=== PATIENT | male | born 1960 | race Caucasian/White ===

== ENCOUNTER 2016-12-23 18:29 | Inpatient (IN) | payer BC, OTHER ==
[~2016-12-23] VITALS: Ht 175.3 cm; Wt 86.5 kg
[~2016-12-23 18:29] MED LIST: CLAR10TA13 PO; CLON.1 PO; GLIM1TAB PO; HYDR-3535 PO; IBUP-232 PO; METF-324 PO; PRIN5TAB PO
[2016-12-23 18:32] VITALS: BP 126/77; PULSE 85; RESP 16; TEMP 98.5; O2SAT 98
[2016-12-23] MEDS ORDERED: LORA-361 PO (18:44)
[2016-12-23] MEDS ORDERED: IBUP200C PO (18:44)
[2016-12-23 19:11] VITALS: BP 155/95; PULSE 95; RESP 18; O2SAT 96
[2016-12-23] MEDS ORDERED: SODIUM CHLOR 0.9% 1000 ML INJ 1,000 ML IV SCH (19:25)
[2016-12-23] MEDS ORDERED: SODIUM CHLORIDE 0.9% FLUSH 10 ML FLUSH IVF PRN ×2 (19:30→22:30)
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
[2016-12-23 19:45] VITALS: BP 155/91; RESP 20; O2SAT 98
[2016-12-23 19:47] LABS: AUTOMATED NEUTROPHIL # 3.4 TH/MM3 (1.8-7.7); BASOPHIL % 0.7 % (0.0-2.0); EOSINOPHIL # 0.2 TH/MM3 (0-0.4); EOSINOPHIL % 2.8 % (0.0-4.0); HEMATOCRIT 46.3 % (39.0-51.0); HEMO FLAGS DIFF FINAL; LYMPH % 35.9 % (9.0-44.0); LYMPHOCYTE # 2.2 TH/MM3 (1.0-4.8); MEAN CORPUSCULAR HEMOGLOBIN 32.2 PG (27.0-34.0); MEAN CORPUSCULAR HGB CONC 33.9 % (32.0-36.0); NEUT % 55.6 % (16.0-70.0); PLATELET COUNT 193 TH/MM3 (150-450); RED BLOOD COUNT 4.87 MIL/MM3 (4.50-5.90); RED CELL DISTRIBUTION WIDTH 13.5 % (11.6-17.2); WHITE BLOOD COUNT 6.1 TH/MM3 (4.0-11.0)
[2016-12-23 19:57] LABS: APTT (PATIENT) 22.1 SEC (24.3-30.1); PROTHROMBIN TIME - PATIENT 10.9 SEC (9.8-11.6)
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
[2016-12-23 20:26] LABS: POTASSIUM 4.3 MEQ/L (3.5-5.1)
[2016-12-23 20:29] LABS: BICARBONATE 27.7 MEQ/L (21.0-32.0); MAGNESIUM 2.2 MG/DL (1.5-2.5)
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
[2016-12-23 20:53] LABS: BLOOD, URINE TRACE (NEG); KETONE, URINE NEG (NEG); NITRITE,URINE NEG (NEG)
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
[2016-12-23 20:58] LABS: GLUCOSE,URINE 1000 OR GREATER mg/dL (NEG); URINE COLOR YELLOW (YELLW/STRAW)
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
[2016-12-23 21:00] LABS: COMMENT (UR) CULT NOT INDICATED; CULTURE IF INDICATED CULT NOT INDICATED; RBC, URINE 0-3 /hpf (0-3); SQUAMOUS EPITHELIAL CELL URINE 0-5 /hpf (0-5); WBC, URINE 0-2 /hpf (0-5)
[2016-12-23] MEDS ORDERED: ONDANSETRON HCL 4 MG/2 ML VIAL IV PUSH ONE (21:15)
[2016-12-23] MEDS ORDERED: MORPHINE SULFATE 4 MG/ML INJ IV PUSH ONE ×2 (21:15→21:45)
[2016-12-23] MEDS ORDERED: IOHEXOL 350 MG/ML 10 ML VIAL (for RAD DIAG) IV ONE (21:46)
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
[2016-12-23 22:27] VITALS: BP 165/99; PULSE 100; RESP 15; O2SAT 97
[2016-12-23] MEDS ORDERED: INSULIN HUMAN REGULAR 1,000 UNITS/10 ML VIAL SQ ONE (23:30)
[2016-12-24] MEDS ORDERED: MORPHINE SULFATE 4 MG/ML INJ IV PUSH ONE (00:30)
[2016-12-24 00:42] VITALS: BP 179/84
[2016-12-24 01:30] VITALS: BP 168/94; PULSE 109; RESP 17; TEMP 98.9; O2SAT 96
[2016-12-24] MEDS: oxyCODONE/ACETAMINOPHEN 5 MG/325 MG TAB PO PRN ×4 (03:08→16:13)
[2016-12-24] MEDS ORDERED: MORPHINE SULFATE 4 MG/ML INJ IV PUSH PRN (03:15)
[2016-12-24] MEDS ORDERED: oxyCODONE/ACETAMINOPHEN 5 MG/325 MG TAB PO PRN (03:15)
[2016-12-24 04:00] VITALS: BP 161/84; PULSE 115; RESP 16; TEMP 97.8; O2SAT 94
[2016-12-24 07:30] VITALS: BP 168/95; PULSE 92; RESP 16; TEMP 97; O2SAT 98
[2016-12-24] MEDS ORDERED: LIDOCAINE HCL 5% PATCH TD SCH (09:00)
[2016-12-24] MEDS ORDERED: DOCUSATE SODIUM 100 MG CAP PO SCH (09:00)
[2016-12-24] MEDS ORDERED: SODIUM CHLORIDE 0.9% FLUSH 10 ML FLUSH IV FLUSH SCH (09:00)
[2016-12-24] MEDS ORDERED: FAMOTIDINE 20 MG TAB PO SCH (09:00)
[2016-12-24] MEDS: METHOCARBAMOL 500 MG TAB PO SCH ×2 (10:36→16:12)
[2016-12-24] MEDS ORDERED: OXYC1TAB63 PO (11:19)
[2016-12-24] MEDS ORDERED: GLUCAGON 1 MG/ML VIAL OTHER PRN (11:30)
[2016-12-24] MEDS ORDERED: DEXTROSE 50% IN WATER 50 ML VIAL(D50) IV PUSH PRN (11:30)
[2016-12-24 11:49] VITALS: BP 190/98; PULSE 85; RESP 17; TEMP 97.1; O2SAT 97
[2016-12-24] MEDS ORDERED: MILKSUS PO (13:08)
[2016-12-24] MEDS ORDERED: METH500T3 PO (13:08)
[2016-12-24] MEDS ORDERED: DOCU1CAP39 PO (13:08)
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
[2016-12-24] MEDS ORDERED: LISINOPRIL 20 MG TAB PO SCH (15:00)
[2016-12-24] MEDS ORDERED: INSULIN NovoLIN REGULAR SUPPLEMENTAL SCALE SQ SCH (16:00)
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
[2016-12-24 17:25] VITALS: BP 171/92; PULSE 97; RESP 17; TEMP 98.3; O2SAT 94
[2016-12-24] MEDS ORDERED: REMOVE OLD PATCH T-DERMAL SCH (21:00)
[2016-12-24] MEDS ORDERED: MAGNESIUM HYDROXIDE SUSP 30 ML CUP PO SCH (21:00)
--- NOTE | 2016-12-25 12:49 | EKG ---
Date Performed: 12/23/2016 Time Performed: 22:44:46 PTAGE: 56 years EKG: Sinus tachycardia. Normal ECG except for rate PREVIOUS TRACING : 05/24/2015 21.53 Compared to prior tracing no significant change DOCTOR: Alirio Cortez Interpretating Date/Time 12/25/2016 12:47:40
[2017-01-18] MEDS ORDERED: HYDR-3516 PO (15:22)
[2017-01-18] MEDS ORDERED: METF1000 PO (15:23)
[2017-01-18] MEDS ORDERED: GLIM4TAB PO (15:53)
[2017-01-21] MEDS ORDERED: PERC5TAB12 PO (13:00)
== END 2016-12-24 18:29 | disposition home or self-care (01) | DRG 185 ==
LOC: PHED 18:29 → PHEDA 22:31 → N06B 12-24 01:05
PROVIDERS: ADMIT Surgery; ATTEND Surgery
DX: S22.42XA Multiple fractures of ribs, left side, initial encounter for closed fracture (principal); S09.90XA Unspecified injury of head, initial encounter; I10 Essential (primary) hypertension; S42.022A Displaced fracture of shaft of left clavicle, initial encounter for closed fracture; E78.5 Hyperlipidemia, unspecified; V29.88XA Motorcycle rider (driver) (passenger) injured in other specified transport accidents, initial encounter; Y92.414 Local residential or business street as the place of occurrence of the external cause; F17.210 Nicotine dependence, cigarettes, uncomplicated; K21.9 Gastro-esophageal reflux disease without esophagitis; G43.909 Migraine, unspecified, not intractable, without status migrainosus; F12.90 Cannabis use, unspecified, uncomplicated; E11.9 Type 2 diabetes mellitus without complications; Z79.84 Long term (current) use of oral hypoglycemic drugs
CPT/HCPCS: 70450; 70486; 71010; 71260; 72125; 73030; 74177; 80048; 80307; 81001; 82948; 83735; 85025; 85610; 85730; 86850; 86900; 86901; 93005; 94150; 96361; 96374; 96375; 96376; J1815; J2270; J2405; J7030; L0150; Q9967

== ENCOUNTER → 2017-01-21 | Day surgery (SDC) | payer BC ==
[~2017-01-21] VITALS: Ht 175.3 cm; Wt 82.6 kg
[~2017-01-21] MED LIST changes: +*LABETALOL HCL 100 MG/20 ML VIAL PERIprocedural Use ONLY ONE; +*morphine SULFATE 8 MG/ML PERIprocedure ONLY ONE; +ACETAMINOPHEN 1000 MG/100 ML VIAL IV ONE; +CHLORHEXIDINE GLUCONATE 2 % 1 PACK (2 CLOTHS) TOPICAL PRN; +CHLORHEXIDINE GLUCONATE 4% SOLN 120 ML BTL TOPICAL SCH; -CLAR10TA13 PO; -CLON.1 PO; +DEXAMETHASONE SOD PHOS 4 MG/ML VIAL ONE; +FAMOTIDINE 20 MG/2 ML VIAL ONE; +GENTAMICIN SULFATE 80 MG/2 ML VIAL IRRIGATION ONE; -GLIM1TAB PO; +GLIM4TAB PO; +HYDR-3516 PO; -HYDR-3535 PO; -IBUP-232 PO; +IBUP200C PO; +INSULIN HUMAN REGULAR 1,000 UNITS/10 ML VIAL SQ PRN; +KETOROLAC TROMETHAMINE 30 MG/ML (IVP) VIAL IVP ONE; +LACTATED RINGER'S 1000 ML IV PRN; +LORA-361 PO; -METF-324 PO; +METF1000 PO; +METOCLOPRAMIDE HCL 10 MG/2 ML VIAL ONE; +METOPROLOL TARTRATE 25 MG TAB PO PRN; +MIDAZOLAM HCL 2 MG/2 ML VIAL ONE; +MORPHINE SULFATE 4 MG/ML INJ IV PUSH PRN; +NEOSTIGMINE 3 MG/3 ML SYR IV ONE; +ONDANSETRON HCL 4 MG/2 ML VIAL IV PRN; +ONDANSETRON HCL 4 MG/2 ML VIAL IV PUSH ONE; +PERC5TAB12 PO; +PHENYLEPH/NS 1000 MCG/10 ML SYR IV ONE; +POVIDONE IODINE 5% (ANTISEPSIS KIT) 4 APPLICATIONS EACH NARE PRN; -PRIN5TAB PO; +PROPOFOL 200 MG/20 ML AMP IV ONE; +SODIUM CHLORID 0.9% 500 ML IV PRN; +SODIUM CHLORIDE 0.9% FLUSH 10 ML FLUSH IV FLUSH PRN; +SODIUM CHLORIDE 0.9% FLUSH 10 ML FLUSH IV FLUSH SCH; +VANCOMYCIN 1000 MG/NS 250 ML (for <70 kg) IV SCH; +ceFAZolin 2 GM PREMIX 50 ML IV SCH; +fentaNYL CITRATE 250 MCG/5 ML AMP ONE; +oxyCODONE/ACETAMINOPHEN 5 MG/325 MG TAB PO PRN
[2017-01-21 11:22] VITALS: BP 160/89; PULSE 97; RESP 20; TEMP 98.1; O2SAT 98
[2017-01-21 11:41] LABS: AUTOMATED NEUTROPHIL # 4.6 TH/MM3 (1.8-7.7); BASOPHIL % 0.5 % (0.0-2.0); EOSINOPHIL # 0.2 TH/MM3 (0-0.4); EOSINOPHIL % 2.7 % (0.0-4.0); HEMATOCRIT 44.4 % (39.0-51.0); HEMO FLAGS DIFF FINAL; LYMPH % 26.4 % (9.0-44.0); LYMPHOCYTE # 1.8 TH/MM3 (1.0-4.8); MEAN CELL VOLUME 91.4 FL (80.0-100.0); MONO % 4.9 % (0.0-8.0); NEUT % 65.5 % (16.0-70.0); PLATELET COUNT 189 TH/MM3 (150-450); RED BLOOD COUNT 4.85 MIL/MM3 (4.50-5.90); RED CELL DISTRIBUTION WIDTH 13.1 % (11.6-17.2)
--- NOTE | 2017-01-21 15:42 | PD.OP ---
cc: Inderjit Tijerina Jr., MD Operative Report Date of Surgery: Jan 21, 2017 Preoperative Diagnosis: left clavicle shaft displaced and comminuted fracture Postoperative Diagnosis: Same Procedure: Open reduction internal fixation left clavicle Anesthesia: Gen. Surgeon: Inderjit Tijerina Hardscape Foreman(s): Staff Resident Surgeon: None Operation and Findings: The patient was brought to the operating room and laid supine on the OR table with the upper extremities slightly elevated in a beachchair position. After general anesthesia was induced the patient was positioned. Next the LEFT upper extremity was prepped and draped in the usual sterile fashion including the clavicle. A standard incision was made directly overlying the clavicle and the dissection was carried down to the deep layer exposing the clavicle frac. The fracture was identified and the fracture segments were exposed and cleaned. There was severe comminution at the segmental midshaft fragments with 2 main large fragments. The fracture was reduced and held provisionally with a bone clamp. One lag screw was placed laterally. The fracture was then neutralized with a 6 hole clavicle shaft plate from [employer]. The plate was fashioned over the clavicle with 2 screws on either side of the fracture in standard AO fashion. The 2 main large mid shaft fragments with longitudinal split where reduced and reduction was maintained with 2 anterior to posterior lag screws. All screws were measured for length. Fluoroscopy confirmed appropriate reduction and placement of the hardware. The wound was then copiously irrigated. Hemostasis was obtained. The wound was closed in layers with 2-0 Vicryl then 2-0 nylon at the skin. Sterile dressing was applied. Patient was placed in a sling and swath. He was extubated and transferred to PACU in stable condition. there were no complications. Inderjit Tijerina Jr., MD Jan 21, 2017 15:42
--- NOTE | 2017-01-21 16:07 | RADRPT ---
EXAM DATE/TIME: 01/21/2017 15:00 [facility] COMPARISON: No previous studies available for comparison. INDICATIONS : ORIF left clavicle. MEDICAL HISTORY : None. SURGICAL HISTORY : None. ENCOUNTER: Initial ACUITY: 1 day PAIN SCORE: Non-responsive. LOCATION: Left clavicle. FINDINGS: Multiple views of the left clavicle were obtained and demonstrate placement of a screw plate fixation device transfixing the clavicular fracture. The fracture fragments are in near-anatomic alignment. CONCLUSION: Status post open reduction internal fixation. Ray Morel MD on January 21, 2017 at 16:05 Board Certified Radiologist. This report was verified electronically.
[2017-01-21 17:10] VITALS: BP 152/80; PULSE 96; RESP 20; TEMP 98.4; O2SAT 96
== END | disposition home or self-care (01) ==
LOC: HSDC 10:18
PROVIDERS: ATTEND Orthopaedic Surgery
DX: S42.022A Displaced fracture of shaft of left clavicle, initial encounter for closed fracture (principal); I10 Essential (primary) hypertension; E11.9 Type 2 diabetes mellitus without complications; V29.88XA Motorcycle rider (driver) (passenger) injured in other specified transport accidents, initial encounter
CPT/HCPCS: 00450; 23515; 73000; 76000; 85025; 86850; 86900; 86901; C1713; J0131; J1100; J1580; J1885; J2250; J2270; J2370; J2405; J2710; J2765; J3010; J3370; J7050; J7120